=== PATIENT | female | born 1990 | race Caucasian/White ===

== ENCOUNTER 2019-04-01 13:17 | Inpatient (IN) | payer BC ==
[2019-04-03] MEDS ORDERED: CARBOPROST TROMETHAMINE 250 MCG/ML 1 ML AMP IM PRN (06:02)
[2019-04-03] MEDS ORDERED: METHYLERGONOVINE 0.2 MG/ML 1 ML AMP IM PRN (06:02)
[2019-04-03] MEDS ORDERED: TERBUTALINE 1 MG/ML VIAL SQ PRN (06:02)
[2019-04-03] MEDS ORDERED: OXYTOCIN 10 UNIT/ML 1 ML VIAL IM PRN (06:02)
[2019-04-03] MEDS ORDERED: LIDOCAINE 0.5% (PF) 5 MG/ML (50 ML SDV) SQ PRN (06:02)
[2019-04-03 06:12] VITALS: BMI 28.1
[2019-04-03] MEDS: LACTATED RINGERS 1,000 ML IV SCH ×2 (06:14→20:34)
[2019-04-03] MEDS ORDERED: OXYTOCIN 30 UNITS/500 ML NS 30 UNIT in SALINE 1 500ML.BAG IV SCH (06:15)
[2019-04-03 06:24] LABS: Basophils % (A) 1 %; Eosinophils # (A) 0.2 k/uL (0-0.7); Eosinophils % (A) 3 %; HCT 37.6 % (34.0-46.0); HGB 12.3 gm/dL (11.4-16.0); Lymphocytes # (A) 1.3 k/uL (1.0-4.8); Lymphocytes % (A) 18 %; MCH 28.5 pg (25.0-35.0); MCHC 32.8 g/dL (31.0-37.0); MCV 86.8 fL (80.0-100.0); Mean Platelet Volume 6.7; Monocytes # (A) 0.4 k/uL (0-1.0); Monocytes % (A) 6 %; Neutrophils # (A) 5.2 k/uL (1.3-7.7); Neutrophils % (A) 71 %; Platelet Count 216 k/uL (150-450); RBC 4.33 m/uL (3.80-5.40); RDW 14.1 % (11.5-15.5); WBC 7.3 k/uL (3.8-10.6)
[2019-04-03] MEDS ORDERED: SODIUM CHLORIDE 0.9% 100 ML BAG ONE (12:15)
[2019-04-03] MEDS ORDERED: ROPIVACAINE 5MG/ML 20ML VIAL ONE (12:15)
[2019-04-03] MEDS ORDERED: fentaNYL (PF) 50 MCG/ML 5 ML AMP ONE (12:15)
--- NOTE | 2019-04-03 16:20 | P.HPOB ---
History of Present Illness H&P Date: 04/03/19 Chief Complaint: Intrauterine at 40 weeks induction of labor Patient is a 28-year-old at 40 and 2 weeks gestation who arrives for induction of labor. Her course generally speaking has been unremarkable. She has marginal previa that was cleared by 20 week ultrasound. All other questions are answered for her at this time. Pitocin augmentation of labor has been started and artificial rupture membranes was performed with clear fluid noted. She is dilated 3 cm 80% effaced and -2 station. On physical exam vital signs are stable and afebrile. Heart regular, lungs clear, extremities without pain. Abdomen soft and nontender with positive bowel sounds noted. Category 1 tracings noted. Assessment intrauterine term. Plan anticipate spontaneous vaginal delivery and we'll discuss use of epidural for analgesia. Past Medical History Past Medical History: No Reported History History of Any Multi-Drug Resistant Organisms: None Reported Additional Past Surgical History / Comment(s): [place] tooth extraction Past Anesthesia/Blood Transfusion Reactions: No Reported Reaction Past Psychological History: No Psychological Hx Reported Smoking Status: Never smoker Past Drug Use History: None Reported - Past Family History Father Family Medical History: No Reported History Medications and Allergies Home Medications Medication Instructions Recorded Confirmed Type No Known Home Medications 04/03/19 04/03/19 History Allergies Allergy/AdvReac Type Severity Reaction Status Date / Time No Known Allergies Allergy Verified 10/30/16 06:53 Exam Osteopathic Statement: *. No significant issues noted on an osteopathic structural exam other than those noted in the History and Physical/Consult. Vital Signs Temp Pulse Resp BP Pulse Ox 04/03/19 15:42 88 16 101/57 04/03/19 15:27 89 16 100/53 04/03/19 15:12 89 16 100/53 04/03/19 14:57 90 16 97/50 04/03/19 14:42 97.8 F 86 16 108/53 04/03/19 05:57 98 F 84 16 127/68 97 Intake and Output 04/03/19 04/03/19 04/03/19 06:59 14:59 22:59 Other: # Voids 1 Weight 81.647 kg Results Result Diagrams: 04/03/19 06:15
--- NOTE | 2019-04-03 16:24 | P.PROBDLV ---
Vaginal Delivery Note - . Vaginal Delivery Note: Patient progressed complete and pushing. Baby was noted to be right occiput posterior position during the the sent and she did push for an inordinate amount of time and became exhausted due to same. She had a long discussion with myself and her and the nurses were present on options of continued to push but her push pushing power was diminishing with each contraction, I did offer section as an alternative we did discuss the risks of infection and bleeding prickly with potential laceration being done to the cervix due to how low the baby was, and as the baby was essentially at the vaginal introitus this would need to push the baby's head up from below in all likelihood just to be able to help deliver the baby. The third option which she and her both accepted even with the risks discussed was to try a vacuum-assisted delivery. I did explain that with the position of the baby's head we need to be very cautious due to the anterior fontanelle and potential damage based on the positioning of the baby's head, other risks also discussed included laceration hematoma and retinal injuries as well as potential for brain injury. however with one pull we expected to be able to deliver the baby as it seemed that there was enough room posteriorly but she was just not able to push the baby down any further and with each successive push the baby was not really coming down any further. Therefore during one of her contractions replace the suction on the baby's head as far posterior as was possible and pumping to the minimum of approximately 40 mmHg with 1 guide more than pull we brought the baby's head up into the remainder the vagina and out of the vagina. Immediately the vacuum was released and removed and the total time of vacuum was less than 20 seconds. Once baby's head was delivered a nuchal cord 1 was easily reduced an anterior posterior shoulders were easily delivered with sideways traction as the baby was lateral and the vagina. Mouth nares were then bulb suctioned baby was placed on mother's abdomen where the umbilical cord was allowed to pulsate for 45 seconds prior to clamping and cutting. Nursery personnel was present to assume care. Placenta was then delivered intact and Pitocin was added to the IV. A second- degree midline laceration was then repaired with 3-0 Vicryl following 1% Xylocaine for analgesia. scores are 9 and 10 at one and 5 minutes just Geetha and the weight was 8 lbs. 15 oz. Both mother and baby appear stable following delivery.
[2019-04-03] MEDS ORDERED: WITCH HAZEL 1 EACH MED..PAD TOPICAL PRN (16:25)
[2019-04-03] MEDS ORDERED: ZOLPIDEM 5 MG TAB PO PRN (16:25)
[2019-04-03] MEDS ORDERED: diphenhydrAMINE 25 MG CAP PO PRN (16:25)
[2019-04-03] MEDS ORDERED: BENZOCAINE/MENTHOL SPRAY 1 GM/SPRAY AEROSOL TOPICAL PRN (16:25)
[2019-04-03] MEDS ORDERED: HYDROcodone/APAP 5-325MG 1 EACH TAB PO PRN (16:25)
[2019-04-03] MEDS ORDERED: diphenhydrAMINE 50 MG CAP PO PRN (16:25)
[2019-04-03] MEDS ORDERED: HYDROCORTISONE 2.5% RECTAL CREAM 30 GM TUBE RECTAL PRN (16:25)
[2019-04-03] MEDS ORDERED: SIMETHICONE 80 MG CHEWABLE PO PRN (16:25)
[2019-04-03] MEDS ORDERED: LANOLIN CREAM 5 GM TUBE TOPICAL PRN (16:25)
[2019-04-03] MEDS ORDERED: diphenhydrAMINE 50 MG/ML 1 ML VIAL IVP PRN ×2 (16:25)
[2019-04-03] MEDS ORDERED: ACETAMINOPHEN TAB 325 MG TAB PO PRN (16:25)
[2019-04-03] MEDS ORDERED: OXYTOCIN 20 UNITS/1000 ML NS 1,000 ML IV SCH (16:30)
[2019-04-03] MEDS: SENNOSIDES-DOCUSATE SODIUM 1 EACH TAB PO SCH (19:45)
[2019-04-03] MEDS: IBUPROFEN 600 MG TAB PO PRN (19:51)
[2019-04-04] MEDS: IBUPROFEN 600 MG TAB PO PRN ×3 (04:19→20:39)
[2019-04-04] MEDS: SENNOSIDES-DOCUSATE SODIUM 1 EACH TAB PO SCH ×2 (09:26→20:41)
--- NOTE | 2019-04-04 10:25 | P.DS ---
Providers Date of admission: 04/03/19 05:50 Expected date of discharge: 04/04/19 Attending physician: Maurilio Martinez Primary care physician: [facility] Course: Patient is doing very well day 1. She is involuting, voiding and tolerating her diet. She voices no complaints and is requesting discharge home today. She declines any pain medication to go home with. Her vital signs are stable afebrile. Heart regular, lungs clear, extremities without pain. Abdomen soft uterus is firm and lochia is reported be light. Assessment day 1. Plan discharged home follow up with me in 6 weeks. Discharge instructions were thoroughly reviewed and all questions were answered for her prior to her discharge. She is stable for discharge this time. Patient Condition at Discharge: Good Plan - Discharge Summary New Discharge Prescriptions: No Action No Known Home Medications Discharge Medication List No Known Home Medications 04/03/19 [History] Follow up Appointment(s)/Referral(s): Maurilio Martinez DO [Doctor of Osteopathic Medicine] - 6 Weeks Activity/Diet/Wound Care/Special Instructions: No heavy lifting, limit stairs and driving, and pelvic rest. If any high temperatures, heavy bleeding, or severe pain call my office Discharge Disposition: HOME SELF-CARE
[2019-04-04] MEDS: LACTATED RINGERS 1,000 ML IV SCH ×2 (15:05→15:06)
[2019-04-05 08:01] VITALS: BP 116/65; PULSE 74; RESP 18; TEMP 98.1
[2019-04-05] MEDS: SENNOSIDES-DOCUSATE SODIUM 1 EACH TAB PO SCH (08:06)
--- NOTE | 2019-04-05 10:25 | P.DS ---
Providers Date of admission: 04/03/19 05:50 Expected date of discharge: 04/05/19 Attending physician: Maurilio Martinez Primary care physician: [facility] Course: AB did not go home yesterday therefore discharge was canceled. There are no changes from yesterday's dictation she is stable for discharge today. All questions were answered for her and she will go home later today. Patient Condition at Discharge: Good Plan - Discharge Summary New Discharge Prescriptions: No Action No Known Home Medications Discharge Medication List No Known Home Medications 04/03/19 [History] Follow up Appointment(s)/Referral(s): Maurilio Martinez DO [Doctor of Osteopathic Medicine] - 6 Weeks Activity/Diet/Wound Care/Special Instructions: No heavy lifting, limit stairs and driving, and pelvic rest. If any high temperatures, heavy bleeding, or severe pain call my office Discharge Disposition: HOME SELF-CARE
== END 2019-04-05 13:30 | disposition home or self-care (01) | DRG 806 ==
LOC: 4FBP 04-03 05:50
PROVIDERS: ADMIT Obstetrics & Gynecology; ATTEND Obstetrics & Gynecology
PROC: 10D07Z6 Extraction of Products of Conception, Vacuum, Via Natural or Artificial Opening (ICD-10-PCS; principal; 2019-04-03)
PROC: 0KQM0ZZ Repair Perineum Muscle, Open Approach (ICD-10-PCS; 2019-04-03)
PROC: 3E033VJ Introduction of Other Hormone into Peripheral Vein, Percutaneous Approach (ICD-10-PCS; 2019-04-03)
PROC: 10907ZC Drainage of Amniotic Fluid, Therapeutic from Products of Conception, Via Natural or Artificial Opening (ICD-10-PCS; 2019-04-03)
PROC: 00HU33Z Insertion of Infusion Device into Spinal Canal, Percutaneous Approach (ICD-10-PCS; 2019-04-03)
PROC: 3E0R3BZ Introduction of Anesthetic Agent into Spinal Canal, Percutaneous Approach (ICD-10-PCS; 2019-04-03)
DX: O64.0XX0 Obstructed labor due to incomplete rotation of fetal head, not applicable or unspecified (principal); O44.22 Partial placenta previa NOS or without hemorrhage, second trimester; Z37.0 Single live birth; O69.81X0 Labor and delivery complicated by cord around neck, without compression, not applicable or unspecified; O70.1 Second degree perineal laceration during delivery; Z3A.40 40 weeks gestation of pregnancy
CPT/HCPCS: 85025; 86850; 86900; 86901

== ENCOUNTER 2021-12-08 05:53 | Inpatient (IN) | payer BC ==
[2021-12-08] MEDS ORDERED: TERBUTALINE 1 MG/ML VIAL SQ PRN (06:36)
[2021-12-08] MEDS ORDERED: LIDOCAINE 1% (PF) 10 MG/ML (30 ML SDV) SQ PRN (06:36)
[2021-12-08] MEDS ORDERED: OXYTOCIN 10 UNIT/ML 1 ML VIAL IM PRN (06:36)
[2021-12-08] MEDS ORDERED: METHYLERGONOVINE 0.2 MG/ML 1 ML AMP IM PRN (06:36)
[2021-12-08] MEDS ORDERED: CARBOPROST TROMETHAMINE 250 MCG/ML 1 ML AMP IM PRN (06:36)
[2021-12-08] MEDS ORDERED: OXYTOCIN 30 UNITS/500 ML NS 30 UNIT in SALINE 1 500ML.BAG IV SCH (06:45)
[2021-12-08] MEDS: LACTATED RINGERS 1,000 ML IV SCH ×3 (06:45→23:13)
[2021-12-08 06:49] LABS: Basophils % (A) 0 %; Eosinophils # (A) 0.2 k/uL (0-0.7); Eosinophils % (A) 2 %; HCT 40.9 % (34.0-46.0); HGB 13.3 gm/dL (11.4-16.0); Lymphocytes # (A) 1.4 k/uL (1.0-4.8); Lymphocytes % (A) 19 %; MCH 28.9 pg (25.0-35.0); MCHC 32.5 g/dL (31.0-37.0); Mean Platelet Volume 7.3; Monocytes # (A) 0.3 k/uL (0-1.0); Monocytes % (A) 4 %; Neutrophils # (A) 5.6 k/uL (1.3-7.7); Neutrophils % (A) 73 %; Platelet Count 230 k/uL (150-450); RBC 4.59 m/uL (3.80-5.40); RDW 14.3 % (11.5-15.5); WBC 7.7 k/uL (3.8-10.6)
--- NOTE | 2021-12-08 08:32 | P.HPOB ---
History of Present Illness H&P Date: 12/08/21 Chief Complaint: Intrauterine at term: Induction of labor Patient is a 31-year-old 3 para 2 at 39 weeks 2 days gestation who arrives for induction of labor. Her course has been unremarkable and she is feeling well at this time. There was some question of macrosomia but she has had larger babies in the past with weights over 8 pounds. No other abnormal findings are noted. She is feeling some contractions she was dilated 4 cm 80% effaced -3 station artificial rupture membranes was performed I suspect based on the amount of fluid that she probably had polyhydramnios but this had not previously been noted. She did fail her 1 hour but passed her 3 her Glucola screen her pertinent labs O+ blood type, Rh antibody was negative, rubella is immune, hepatitis B surface antigen RPR and GBS are all negative. She plans to do an epidural for analgesia she does not want to have any IV pain medication a category 1 tracing is noted on the monitor. Past Medical History Past Medical History: No Reported History History of Any Multi-Drug Resistant Organisms: None Reported Additional Past Surgical History / Comment(s): [place] tooth extraction Past Anesthesia/Blood Transfusion Reactions: No Reported Reaction Past Psychological History: No Psychological Hx Reported Smoking Status: Former smoker Past Alcohol Use History: Occasional Additional Past Alcohol Use History / Comment(s): Social drinker, none during Past Drug Use History: None Reported Additional Drug Use History / Comment(s): Quit smoking 9-10 years ago - Past Family History Father Family Medical History: No Reported History Medications and Allergies Home Medications Medication Instructions Recorded Confirmed Type Pnv No.95/Ferrous Fum/Folic AC 1 each PO DAILY 12/08/21 12/08/21 History [ Multivitamin Tablet] Allergies Allergy/AdvReac Type Severity Reaction Status Date / Time No Known Allergies Allergy Verified 12/08/21 05:57 Exam Osteopathic Statement: *. No significant issues noted on an osteopathic structural exam other than those noted in the History and Physical/Consult. Vital Signs Temp Pulse Resp BP Pulse Ox 12/08/21 06:00 97.1 F L 120 H 18 119/71 98 Intake and Output 12/07/21 12/08/21 12/08/21 22:59 06:59 14:59 Other: Weight 90.265 kg - OBG Physical Exam Breast: both: normal (no masses) Abdomen: bowel sounds normal, no diffuse tenderness, no bruit present, no guarding noted, no hepatomegaly, no splenomegaly, no mass Vulva: both: normal Vagina: normal moisture, no discharge Cervix: no lesion, no discharge Uterus: normal size, normal contour Adnexa: both: normal Anus/Rectum: normal perianal skin, no rectal mass, no hemorrhoids, heme negative Results Result Diagrams: 12/08/21 06:05
[2021-12-08] MEDS ORDERED: ROPIVACAINE 5MG/ML 20ML VIAL ONE (10:50)
[2021-12-08] MEDS ORDERED: fentaNYL (PF) 50 MCG/ML 5 ML AMP ONE (10:50)
[2021-12-08] MEDS ORDERED: SODIUM CHLORIDE 0.9% 100 ML BAG ONE (10:50)
[2021-12-08] MEDS ORDERED: BENZOCAINE/MENTHOL SPRAY 1 GM/SPRAY AEROSOL TOPICAL PRN (12:25)
[2021-12-08] MEDS ORDERED: ACETAMINOPHEN TAB 325 MG TAB PO PRN (12:25)
[2021-12-08] MEDS ORDERED: HYDROCORTISONE 2.5% RECTAL CREAM 30 GM TUBE RECTAL PRN (12:25)
[2021-12-08] MEDS ORDERED: ZOLPIDEM 5 MG TAB PO PRN (12:25)
[2021-12-08] MEDS ORDERED: diphenhydrAMINE 50 MG CAP PO PRN (12:25)
[2021-12-08] MEDS ORDERED: diphenhydrAMINE 25 MG CAP PO PRN (12:25)
[2021-12-08] MEDS ORDERED: LANOLIN CREAM 5 GM TUBE TOPICAL PRN (12:25)
[2021-12-08] MEDS ORDERED: diphenhydrAMINE 50 MG/ML 1 ML VIAL IVP PRN ×2 (12:25)
[2021-12-08] MEDS ORDERED: SIMETHICONE 80 MG CHEWABLE PO PRN (12:25)
--- NOTE | 2021-12-08 12:27 | P.PROBDLV ---
Vaginal Delivery Note - . Vaginal Delivery Note: Patient progressed to complete and pushing with spontaneous vaginal delivery of a viable female over a secondary perineal laceration. Following delivery of the head from left occiput anterior position gentle downward traction was performed to clear the anterior shoulder followed by the posterior shoulder and remainder the baby. Mouth nares were then bulb suctioned and baby was placed on mother's abdomen where the umbilical cord blood pulsate for 30 seconds prior to clamping and cutting. Nursery personnel was present and assumed care. Placenta was then delivered intact and Pitocin was added to the IV. Second-degree perineal laceration was then repaired with 3-0 Vicryl following 1% Xylocaine for analgesia in normal fashion. scores were 9 and 9 at one and 5 minutes respectively and the weight was 9 lbs. 4 oz.
[2021-12-08] MEDS ORDERED: ROPIVACAINE 100 MG, fentaNYL (PF). 200 MCG in SODIUM CHLORIDE 0.9% 76 ML EPIDURAL ONE (12:30)
[2021-12-08] MEDS: IBUPROFEN 600 MG TAB PO SCH ×2 (13:25→19:35)
[2021-12-08] MEDS: SENNOSIDES-DOCUSATE SODIUM 1 EACH TAB PO SCH (19:36)
[2021-12-09] MEDS: IBUPROFEN 600 MG TAB PO SCH ×4 (00:50→20:26)
[2021-12-09] MEDS: SENNOSIDES-DOCUSATE SODIUM 1 EACH TAB PO SCH ×2 (08:06→20:27)
--- NOTE | 2021-12-09 13:28 | P.PNOBGVD ---
Subjective - Subjective Principal diagnosis: Status post vaginal delivery day #1 Interval history: Patient is doing okay. She is sad because her baby is on the bili light. Lochia is decreasing. Pain is well-controlled. She is breast-feeding. Patient reports: Reports appetite normal, Reports voiding normally, Reports pain well controlled, Reports ambulating normally : doing well, nursing well Objective - Latest Vital Signs Latest vital signs: Vital Signs Temp Pulse Resp BP Pulse Ox 12/09/21 08:00 98.2 F 98 18 122/71 12/08/21 23:14 97.5 F L 77 16 101/64 12/08/21 20:00 93 18 108/69 95 12/08/21 15:12 99.4 F 96 17 117/62 12/08/21 14:19 99.4 F 106 H 17 120/59 12/08/21 13:49 99 17 112/60 Intake and Output 12/08/21 12/09/21 12/09/21 22:59 06:59 14:59 Output Total 150 Balance -150 Output: Estimated Blood Loss 150 Other: # Voids 2 2 - Exam Extremities: Present: normal. Absent: tenderness Abdomen: Present: normal appearance, soft. Absent: distention, tenderness Uterus: Present: normal, firm. Absent: tenderness Assessment and Plan Assessment: Status post vaginal delivery day 1 Plan: Continue with care today. Plan discharged tomorrow.
[2021-12-10] MEDS: IBUPROFEN 600 MG TAB PO SCH ×3 (05:32→09:05)
[2021-12-10 08:04] VITALS: BP 118/81; PULSE 99; RESP 16; TEMP 97.9
[2021-12-10] MEDS: SENNOSIDES-DOCUSATE SODIUM 1 EACH TAB PO SCH (08:05)
--- NOTE | 2021-12-10 12:44 | P.DS ---
Providers Date of admission: 12/08/21 05:53 Expected date of discharge: 12/10/21 Attending physician: Maurilio Martinez Primary care physician: [facility] None Hospital Course: This is a 31-year-old female 3 para 2 at 39-2/7 weeks who presented for induction of labor per Dr. Martinez on 12/08/2021 and she delivered vaginally a viable female infant with scores of 9 at 1 minute and 9 at 5 minutes and weight of 9 lbs. 4 oz. Her course has been uncomplicated. Lochia has been decreasing. Her pain is well-controlled with ibuprofen. Her baby did need to go on a bili light and currently is awaiting repeat bilirubin labs. She is breast-feeding. Lochia is decreasing. Pain is well-controlled. Vital signs are stable. Abdomen is soft with fundus firm and nontender. Extremities show negative Homans. Impression is status post vaginal delivery day #2. Plan is to discharge home today. Routine instructions are given. She is advised to follow up with Dr. Martinez in approximately 6 weeks. She is advised to call the office if she has any further questions or concerns prior to her appointment time. She will be given a prescription for ibuprofen and a breast pump. Procedures: Oxytocin induction of labor Spontaneous vaginal delivery of a viable female infant on 12/08/2021 Patient Condition at Discharge: Stable Plan - Discharge Summary New Discharge Prescriptions: New Ibuprofen [Motrin] 600 mg PO Q6H #60 tab Continue Pnv No.95/Ferrous Fum/Folic AC [ Multivitamin Tablet] 1 each PO DAILY Discharge Medication List Pnv No.95/Ferrous Fum/Folic AC [ Multivitamin Tablet] 1 each PO DAILY 12/08/21 [History] Ibuprofen [Motrin] 600 mg PO Q6H #60 tab 12/10/21 [Rx] Follow up Appointment(s)/Referral(s): Maurilio Martinez DO [Doctor of Osteopathic Medicine] - 01/03/22 3:15 pm Activity/Diet/Wound Care/Special Instructions: Instructions 1. Do not begin any exercise program for 3 weeks. 2. Do not resume sexual relations for 3 weeks or longer if uncomfortable. 3. You may take tub baths or showers at any time. 4. You may use tampons if desired after 3 weeks. 5. Keep the area of episiotomy (stitches) clean and dry. 6. If you are not nursing, wear a good fitting, supportive bra during the day and limit fluid intake for at least 1 week to prevent breast engorgement. 7. Call the office, [phone], within the next week to make appointment for your 6 week checkup if it has not already been made. 8. Report any of the following occurrences to the doctor promptly: a. Heavy, excessive bleeding b. Chills, fever c. Burning or frequency of urination d. Pain or redness and breasts if nursing e. Increasing pain or swelling in episiotomy (stitches). In addition to the above instructions, the following additional should be followed: 1. No heavy lifting or straining (exercising) until after 6 week checkup. 2. Keep abdominal incision clean and dry: You may wear a dressing if more comfortable. 3. Make office appointment for 10 days after going home or as instructed by her doctor. Discharge Disposition: HOME SELF-CARE
== END 2021-12-10 15:55 | disposition home or self-care (01) | DRG 807 ==
LOC: 4FBP 05:53
PROVIDERS: ADMIT Obstetrics & Gynecology; ATTEND Obstetrics & Gynecology
PROC: 10E0XZZ Delivery of Products of Conception, External Approach (ICD-10-PCS; principal; 2021-12-08)
PROC: 0KQM0ZZ Repair Perineum Muscle, Open Approach (ICD-10-PCS; 2021-12-08)
PROC: 3E033VJ Introduction of Other Hormone into Peripheral Vein, Percutaneous Approach (ICD-10-PCS; 2021-12-08)
PROC: 4A0HXCZ Measurement of Products of Conception, Cardiac Rate, External Approach (ICD-10-PCS; 2021-12-08)
PROC: 10907ZC Drainage of Amniotic Fluid, Therapeutic from Products of Conception, Via Natural or Artificial Opening (ICD-10-PCS; 2021-12-08)
DX: O40.3XX0 Polyhydramnios, third trimester, not applicable or unspecified (principal); Z37.0 Single live birth; O26.893 Other specified pregnancy related conditions, third trimester; O36.63X0 Maternal care for excessive fetal growth, third trimester, not applicable or unspecified; O70.1 Second degree perineal laceration during delivery; Z67.41 Type O blood, Rh negative; Z3A.39 39 weeks gestation of pregnancy; Z87.891 Personal history of nicotine dependence
CPT/HCPCS: 85025; 86850; 86900; 86901

== ENCOUNTER → 2024-05-08 | Outpatient (CLI) | payer BC ==
--- NOTE | 2024-05-08 19:37 | US ---
EXAMINATION TYPE: US groin LT DATE OF EXAM: 05/08/2024 COMPARISON: NONE CLINICAL INDICATION: Female, 34 years old with history of R19.00 INTRA-ABD AND PELVIC SWELLING, MASS AND LUM; Patient feels lump within the left groin x 1 week. TECHNIQUE: Scanned left groin at patient's area of concern with multiple grayscale and color Doppler ultrasound images. FINDINGS/IMPRESSION: There is a possible defect identified within the abdominal wall measuring up to 7 mm in the left groin. There appears to be movement seen with valsalva maneuver. Findings suspiciou s for possible inguinal hernia. Cannot exclude bowel within the possible hernia. Recommend further ev aluation with CT abdomen and pelvis hernia protocol.
== END | disposition home or self-care (01) ==
LOC: RADUSWWP 08:35
PROVIDERS: ATTEND Family Medicine
DX: R19.00 Intra-abdominal and pelvic swelling, mass and lump, unspecified site (principal); R10.30 Lower abdominal pain, unspecified

== ENCOUNTER → 2024-06-22 | Outpatient (CLI) | payer BC ==
--- NOTE | 2024-07-16 09:20 | CT ---
Site ID [facility] Lakia Farmer ID [id number] Order # Procedure Abdomen^ABDOMEN_PELVIS_WO_Customized (Adult) EXAMINATION TYPE: CT abdomen pelvis wo con CT DLP: 743.61 mGycm, Automated exposure control for dose reduction was used. DATE OF EXAM: 06/25/2024 2:52 PM COMPARISON: THIS EXAM WAS READ DURING PACS DOWNTIME, NO PRIORS AVAILABLE. CLINICAL INDICATION: K43.9 Ventral Hernia. Lt inguinal hernia. DLP: 743.61 TECHNIQUE: Axial CT abdomen pelvis wo con;Sagittal and coronal reformats were created on a separate workstation. Contrast used: mL of , (none if empty) Oral contrast used: (none if empty) FINDINGS: LOWER CHEST: Unremarkable ABDOMEN LIVER: Unremarkable GALLBLADDER AND BILE DUCTS: Unremarkable. PANCREAS: Unremarkable. SPLEEN: Unremarkable. ADRENAL GLANDS: Unremarkable. KIDNEYS AND URETERS: There is mineralization of the right renal papilla. Versus pronation/hemorrhagic cyst. The No evidence of hydronephrosis or renal calculus. The ureters are unremarkable. PELVIS BLADDER: Unremarkable REPRODUCTIVE: Unremarkable. ABDOMEN & PELVIS STOMACH AND BOWEL: No evidence of bowel obstruction. The appendix is normal. PERITONEUM/RETROPERITONEUM: No evidence of pneumoperitoneum or free fluid. VASCULATURE: No evidence of aortic aneurysm. MUSCULOSKELETAL: No acute osseous abnormalities LYMPH NODES: No gross evidence for lymphadenopathy. SOFT TISSUE/ABDOMINAL WALL: Small left fat-containing inguinal hernia measuring in totality 2.5 x 14 mm and axial imaging. No right inguinal hernia. Small fat-containing umbilical hernia. IMPRESSION: 1. Small left fat-containing inguinal hernia. 2. No acute abdominal process.
== END | disposition home or self-care (01) ==
LOC: RADCTMAIN 07:52
PROVIDERS: ATTEND Family Medicine
DX: K43.9 Ventral hernia without obstruction or gangrene (principal); K40.90 Unilateral inguinal hernia, without obstruction or gangrene, not specified as recurrent
CPT/HCPCS: 74176

== ENCOUNTER 2025-01-11 08:46 | Day surgery (SDC) | payer BC ==
[2025-01-11 09:35] VITALS: RESP 16; TEMP 98.5
[2025-01-11 10:36] VITALS: BP 114/62; PULSE 75
--- NOTE | 2025-01-11 11:38 | US ---
EXAMINATION TYPE: US FNA thyroid first lesion DATE OF EXAM: 01/11/2025 10:57 AM COMPARISON: 12/23/2024 CLINICAL INDICATION: Female, 34 years old with history of E04.1 NONTOXIC SINGLE THYROID NODULE, , RADIOLOGIST: Dr. Nassar PROCEDURE: An initial scanning shows the mixed solid cystic TR3 isoechoic nodule at the left upper pole measurin g 2.9 x 1.8 x 1.5 cm. This is targeted for FNA. The procedure, along with the risks and complications were discussed with the patient. Patient agreed to proceed with the procedure. A consent was signed and placed in patient's chart. Maximum sterile barrier technique was utilized. Timeout was performed by myself. The left side of the neck was sterilely prepped and draped in the usual fashion. 5 milliliters of 1% Lidocaine were utili zed to anesthetize the superficial and deep soft tissues at each nodule in turn. Following that, under ultrasound guidance, 5 passes were made into the nodule with 5 cc syringe sucti on. After each pass, the sample was placed on a slide and then sent for pathology. Upon conclusion, hemostasis was achieved, and patient was discharged home in satisfactory condition. IMPRESSION: Successful FNA of the 2.9 cm TR3 nodule in the left upper pole. Pathology pending. [facility], , 01/11/2025 11:36 AM
== END 2025-01-11 10:38 | disposition home or self-care (01) ==
LOC: RADPROMAIN 08:46
PROVIDERS: ATTEND Family Medicine
DX: E04.1 Nontoxic single thyroid nodule (principal)
CPT/HCPCS: 10005; 88173; 88305